=== PATIENT | female | born 1970 | race Caucasian/White ===

== ENCOUNTER → 2016-04-24 | Outpatient (CLI) | payer OTHER | LOC: FIMAGING 12:16 | DX: Z12.31 Encounter for screening mammogram for malignant neoplasm of breast (principal) | CPT/HCPCS: G0202 ==

== ENCOUNTER → 2016-05-04 | Outpatient (CLI) | payer OTHER | LOC: FIMAGING 09:11 | PROVIDERS: ATTEND Family Medicine | DX: Z12.39 Encounter for other screening for malignant neoplasm of breast (principal); R92.0 Mammographic microcalcification found on diagnostic imaging of breast | CPT/HCPCS: G0206 ==

== ENCOUNTER → 2016-05-17 | Day surgery (SDC) | payer OTHER ==
[~2016-05-17] MED LIST: THROMBIN (BOVINE) 5,000 UNIT VIAL TP ONE
== END | disposition home or self-care (01) ==
LOC: FIMAGING 11:40
PROVIDERS: ATTEND Family Medicine
PROC: 0HBT3ZX Excision of Right Breast, Percutaneous Approach, Diagnostic (ICD-10-PCS; principal; 2016-05-17)
DX: C50.111 Malignant neoplasm of central portion of right female breast (principal)
CPT/HCPCS: G0206

== ENCOUNTER → 2016-07-03 | Outpatient (CLI) | payer OTHER | LOC: FIMAGING 13:40 | PROVIDERS: ATTEND Radiology Radiation Oncology | DX: Z09 Encounter for follow-up examination after completed treatment for conditions other than malignant neoplasm (principal) | CPT/HCPCS: G0206 ==

== ENCOUNTER → 2017-04-25 | Outpatient (CLI) | payer OTHER | LOC: FIMAGING 12:17 | PROVIDERS: ATTEND Radiology Radiation Oncology | DX: Z12.31 Encounter for screening mammogram for malignant neoplasm of breast (principal); Z85.3 Personal history of malignant neoplasm of breast ==

== ENCOUNTER → 2018-05-01 | Outpatient (CLI) | payer OTHER | LOC: FIMAGING 12:12 | PROVIDERS: ATTEND Internal Medicine Hematology & Oncology | DX: Z12.31 Encounter for screening mammogram for malignant neoplasm of breast (principal); Z86.000 Personal history of in-situ neoplasm of breast ==